=== PATIENT | female | born 1990 | race Caucasian/White ===

== ENCOUNTER → 2016-05-03 | Outpatient (CLI) | payer OTHER ==
[2016-05-03 10:31] LABS: BASO % 0.4 %; BASO ABS # 0.04 K/uL (0-0.2); COMPLETE YES; EOS % 1.8 %; HEMATOCRIT 42.6 % (37-47); IG% 0.3 %; LYMPH % 32.6 %; LYMPH ABS # 3.25 K/uL (1.2-3.4); MEAN CELL VOLUME 90.3 fL (80-100); MEAN CORPUSCULAR HEMOGLOBIN 30.7 pg (25-34); MEAN PLATELET VOLUME 9.9 fL (7.4-10.4); MONO % 7.1 %; NEUT % 57.8 %; PLATELET COUNT 431 K/uL (130-400); RED BLOOD COUNT 4.72 M/uL (4.2-5.4); WHITE BLOOD COUNT 9.98 K/uL (4.8-10.8)
[2016-05-03 10:46] LABS: ALT/SGPT 28 U/L (12-78); AST/SGOT 17 U/L (15-37); BLOOD UREA NITROGEN 8 mg/dl (7-18); BUN/CREATININE RATIO 11.8 (10-20); CALCIUM 9.2 mg/dl (8.5-10.1); CARBON DIOXIDE 30 mmol/L (21-32); CHLORIDE 103 mmol/L (98-107); CREATININE 0.67 mg/dl (0.60-1.20); GLUCOSE 90 mg/dl (70-99); POTASSIUM 4.2 mmol/L (3.5-5.1); SODIUM 139 mmol/L (136-145)
[2016-05-03 10:57] LABS: ALB/GLOB RATIO 1.1 (0.9-2); ALKALINE PHOSPHATASE 82 U/L (45-117); CHOLESTEROL 174 mg/dl (0-200); CHOLESTEROL/HDL RATIO 2.9; HDL CHOLESTEROL 60 mg/dl; LDL CHOLESTEROL CALCULATED 95 mg/dl; TRIGLYCERIDES 93 mg/dl (0-150); VERY LOW DENSITY LIPOPROT CALC 19 mg/dl
== END | disposition home or self-care (01) ==
LOC: C.LABBC 08:42
PROVIDERS: ATTEND Family Medicine
DX: Z13.0 Encounter for screening for diseases of the blood and blood-forming organs and certain disorders involving the immune mechanism (principal); R53.83 Other fatigue; G43.009 Migraine without aura, not intractable, without status migrainosus; Z13.220 Encounter for screening for lipoid disorders

== ENCOUNTER → 2017-06-18 | Outpatient (CLI) | payer OTHER ==
[~2017-06-18] MED LIST: GADAVIST IV PRN
--- NOTE | 2017-06-18 09:43 | DIAGNOSTIC IMAGING REPORT ---
MRI OF THE BRAIN COMBO CLINICAL HISTORY: Migraine headache. COMPARISON STUDY: No priors. TECHNIQUE: MRI of the brain was performed utilizing various T1 and T2-weighted sequences in the axial, sagittal, and coronal planes. Contrast-enhanced sequences were acquired following the administration of 8.5 cc of Gadavist. FINDINGS: Brain parenchyma: The brain parenchyma is normal in appearance. There is no hemorrhage or mass effect. There is no restricted diffusion to suggest acute ischemia. No enhancing mass lesion is identified on the postcontrast images. Collier-white matter differentiation is preserved. No extra-axial fluid collection is seen. The cerebellar tonsils are normal in configuration. Ventricles, sulci, and cisterns: Normal in configuration. Pituitary and sella: Unremarkable. Intracranial vasculature: Normal flow voids are maintained at the skull base. Orbits: The bony orbits are grossly intact. Orbital contents are normal in appearance. Sinuses and mastoids: Clear. Calvarium: Unremarkable. Cervical cord: Partially visualized cervical spinal cord is normal in morphology and signal intensity. IMPRESSION: No acute intracranial abnormality. Electronically signed by: Krunal Gillis M.D. 06/18/2017 9:41 AM Dictated Date/Time: 06/18/2017 9:39 AM
--- NOTE | 2017-06-18 09:44 | DIAGNOSTIC IMAGING REPORT ---
MRI CERVICAL SPINE COMBO CLINICAL HISTORY: M54.2 Neck painM54.12 Cervical radicular painR29.818 Lhermitte's TECHNIQUE: Sagittal and axial T1, T2 and STIR images were obtained. Imaging was obtained before and after the administration of 8.5 cc of intravenous Gadavist COMPARISON STUDY: No previous studies for comparison. There are no suspicious areas of marrow replacement. No intrinsic cervical cord lesions are visualized. C2-3: There is no evidence of disc bulge or focal herniation. There is no spinal or foraminal stenosis. C3-4: There is no evidence of disc bulge or focal herniation. There is no spinal or foraminal stenosis. C4-5: There are no disc bulges or focal herniations. There is no spinal or foraminal stenosis. C5-6 :There is an annular fissure and tiny central disc protrusion. There is no significant spinal or foraminal stenosis C6-7: There is no evidence of disc bulge or focal herniation. There is no evidence of spinal or foraminal stenosis. C7-T1: There is no evidence of disc bulge or focal herniation. There is no evidence of spinal or foraminal stenosis. Postcontrast images reveal no pathologically enhancing lesions. IMPRESSION:Annular fissure and tiny central disc protrusion at the C5-6 level. Electronically signed by: Jc Ash M.D. 06/18/2017 9:43 AM Dictated Date/Time: 06/18/2017 9:39 AM
== END | disposition home or self-care (01) ==
LOC: C.MRIBC 07:59
PROVIDERS: ATTEND Psychiatry & Neurology Neurology
DX: M54.12 Radiculopathy, cervical region (principal); R29.818 Other symptoms and signs involving the nervous system; G43.009 Migraine without aura, not intractable, without status migrainosus; H54.7 Unspecified visual loss; M50.222 Other cervical disc displacement at C5-C6 level

== ENCOUNTER → 2017-07-03 | Outpatient (CLI) | payer OTHER ==
[2017-07-03 16:36] LABS: BASO % 0.5 %; BASO ABS # 0.05 K/uL (0-0.2); EOS % 2.3 %; EOS ABS # 0.24 K/uL (0-0.5); HEMATOCRIT 39.9 % (37-47); HEMOGLOBIN 13.6 g/dL (12.0-16.0); IG# 0.02 K/uL (0.00-0.02); LYMPH % 38.3 %; LYMPH ABS # 4.05 K/uL (1.2-3.4); MEAN CELL VOLUME 90.5 fL (80-100); MEAN CORPUSCULAR HEMOGLOBIN 30.8 pg (25-34); MEAN CORPUSCULAR HGB CONC 34.1 g/dl (32-36); MEAN PLATELET VOLUME 10.3 fL (7.4-10.4); MONO % 5.9 %; MONO ABS # 0.62 K/uL (0.11-0.59); NEUT % 52.8 %; NEUT ABS # 5.59 K/uL (1.4-6.5); PLATELET COUNT 433 K/uL (130-400); RED CELL DISTRIBUTION WIDTH CV 12.1 % (11.5-14.5); RED CELL DISTRIBUTION WIDTH SD 40.5 fL (36.4-46.3); WHITE BLOOD COUNT 10.57 K/uL (4.8-10.8)
[2017-07-03 16:47] LABS: ALBUMIN 4.1 gm/dl (3.4-5.0); ALT/SGPT 19 U/L (12-78); BLOOD UREA NITROGEN 8 mg/dl (7-18); CALCIUM 9.1 mg/dl (8.5-10.1); CARBON DIOXIDE 28 mmol/L (21-32); CREATININE 0.64 mg/dl (0.60-1.20); GLUCOSE 69 mg/dl (70-99); POTASSIUM 3.4 mmol/L (3.5-5.1); SODIUM 133 mmol/L (136-145)
[2017-07-03 17:08] LABS: ALKALINE PHOSPHATASE 56 U/L (45-117); AST/SGOT 14 U/L (15-37); TOTAL PROTEIN 8.2 gm/dl (6.4-8.2); TRANSFERRIN 392 mg/dl (200-360)
[2017-07-04 02:17] LABS: RAPID PLASMA REAGIN NONREACTIVE (NONREACT)
[2017-07-08 02:24] LABS: ANA SCREEN TC 249X NEGATIVE (NEGATIVE); ANTI-SS-A <1.0 NEG AI (<1.0 NEG); ANTI-SS-B <1.0 NEG AI (<1.0 NEG); ANTICARDIOLIPID AB IGA <11 APL (< = 11); COMPLEMENT C3 TC 44859W 141 MG/DL (90-180); COMPLEMENT C4 TC 44982E 27 MG/DL (16-47); MICROSOMAL AB <1 IU/ML (<9)
== END | disposition home or self-care (01) ==
LOC: C.LABBFT 13:25
PROVIDERS: ATTEND Psychiatry & Neurology Neurology
DX: G43.009 Migraine without aura, not intractable, without status migrainosus (principal); H54.7 Unspecified visual loss; R53.83 Other fatigue; E55.9 Vitamin D deficiency, unspecified; M25.50 Pain in unspecified joint

== ENCOUNTER → 2017-12-21 | Outpatient (CLI) | payer OTHER | END | disposition home or self-care (01) | LOC: C.LABBFT 08:05 | PROVIDERS: ATTEND Nurse Practitioner | DX: Z13.220 Encounter for screening for lipoid disorders (principal); Z13.1 Encounter for screening for diabetes mellitus ==

== ENCOUNTER 2022-08-06 07:46 | Inpatient (IN) ==
[2022-08-06] MEDS ORDERED: LIDOCAINE 1% LOCAL 20 ML VIAL INFIL PRN (08:15)
[2022-08-06] MEDS ORDERED: OXYTOCIN 30 UNITS/500 ML BAG IV PRN ×3 (08:15→17:55)
[2022-08-06 08:46] LABS: Hematocrit (blood only) 34.5 % (37.0-47.0); Hemoglobin 12.1 g/dl (12.0-16.0); Mean Corpuscular Hemoglobin 31.3 pg (25.0-34.0); Mean Corpuscular Hgb Conc 35.1 g/dL (32.0-36.0); Mean Corpuscular Volume 89.4 fL (80.0-100.0); Mean Platelet Volume 10.7 fL (9.4-12.4); Platelet Count 295 K/uL (130-400); RDW Coefficient of Variation 12.9 % (11.5-14.5); RDW Standard Deviation 41.9 fL (36.4-46.3); Red Blood Count 3.86 M/uL (4.20-5.40); White Blood Count 11.19 K/ul (4.8-10.8)
[2022-08-06] MEDS: LACTATED RINGER'S 1,000 ML IV PRN ×2 (09:13→13:28)
[2022-08-06] MEDS ORDERED: ePHEDrine sulfate 50 MG/ML AMP ONE (12:58)
[2022-08-06] MEDS ORDERED: BUPIVACAINE 0.25% PF 30 ML VIAL ONE (12:59)
[2022-08-06] MEDS ORDERED: SODIUM CHLORIDE 0.9% PF INJ 10 ML VIAL ONE (12:59)
[2022-08-06] MEDS ORDERED: fentaNYL citrate PF 100 MCG/2 ML VIAL ONE (12:59)
[2022-08-06] MEDS ORDERED: LIDOCAINE 2%/EPINEPHRINE 1:200,000 20 ML PF ONE (12:59)
[2022-08-06] MEDS ORDERED: fentaNYL 2MCG/ML ROPIVACAINE 1.25MG/ML 100 ML BAG EPI ONE (13:00)
[2022-08-06] MEDS ORDERED: ePHEDrine sulfate 50 MG/ML AMP IV PRN (13:43)
[2022-08-06] MEDS ORDERED: ONDANSETRON INJ 2 MG/ML 2 ML VIAL IV PRN (13:43)
[2022-08-06] MEDS ORDERED: NALOXONE HCL 0.4 MG/1 ML VIAL/CARP IV PRN (13:43)
[2022-08-06] MEDS ORDERED: fentaNYL 2MCG/ML ROPIVACAINE 1.25MG/ML 100 ML BAG EPI PRN (13:43)
[2022-08-06] MEDS ORDERED: NALOXONE HCL 1 MG in SODIUM CHLORIDE 0.9% 1000ML 1,000 ML IV PRN (13:43)
[2022-08-06] MEDS ORDERED: diphenhydrAMINE 50 MG/ML VIAL IV PRN (13:43)
[2022-08-06] MEDS ORDERED: NALBUPHINE HCL INJ 10 MG/ML AMP IV PRN (13:43)
--- NOTE | 2022-08-06 13:43 | Anesthesiology Consultation ---
Date of Service August 06, 2022 Assessment & Plan Chart Review Chart Review: Patient NOT seen in Pre Admission Testing and Acceptable Risk for Labor Epidural Consults Requested none ASA ASA2 Proposed Anesthesia Anesthesia Type: Labor Epidural Risk / Benefits Reviewed With: PT / POA / Parent / Guardian, Accepts Plan and Informed Consent Obtained History Height/Weight Height: 5 ft 9 in Weight: 97.069 kg Allergies Allergy/AdvReac Type Severity Reaction Status Date / Time cefaclor [From [facility]] Allergy Verified 08/05/22 14:52 Medications Home Medications Medication Instructions Recorded Confirmed Last Taken cholecalciferol (vitamin D3) 125 5,000 unit PO QAM 11/29/18 08/06/22 08/06/22 07:00 mcg (5,000 unit) capsule Saccharomyces boulardii 250 mg 250 mg PO DAILY 09/06/21 08/06/22 08/06/22 07:00 capsule (Daily Probiotic (S. boulardii)) magnesium citrate 100 mg capsule 180 mg PO DAILY 09/06/21 08/06/22 08/06/22 07:00 ascorbic acid (vitamin C) 500 mg 500 mg PO DAILY 12/16/21 08/06/22 08/06/22 07:00 tablet pyridoxine (vitamin B6) [Vitamin 1 tab PO DAILY 12/16/21 08/05/22 08/06/22 07:00 B-6] aspirin 81 mg tablet,delayed 81 mg PO DAILY 04/11/22 08/06/22 08/05/22 22:00 release (Adult Low Dose Aspirin) breast pump #1 ea 05/09/22 08/05/22 Unknown prenat.vits,holden,zzg-[id number]-bdcda 1 tab PO DAILY 08/06/22 08/06/22 08/06/22 07:00 Active Medications Generic Name Dose Route Start Last Admin Trade Name Freq PRN Reason Stop Dose Admin Lactated Ringer's 1,000 mls @ 125 mls/hr 08/06/22 08:15 08/06/22 13:28 Lr IV 08/08/22 08:14 999 mls/hr .Q8H PRN Administration L&D Protocol Protocol Oxytocin 30 units in 500 mls @ 6 mls/hr 08/06/22 08:26 08/06/22 11:05 Pitocin IV 04/14/23 08:25 0.36 units/hr .Q24H PRN 6 mls/hr Labor Induction/Augmentation Titration Protocol 0.36 UNITS/HR Past Medical History Medical History (Updated 02/17/22 @ 09:20 by Gini Ralph MD, FACOG) Anti-BULLET LUBRICATING MACHINE OPERATOR antibodies present Anxiety Common migraine without aura Exercise-induced asthma Vitamin D deficiency Exercise / Class Metabolic Activity II 4-5 Yardwork/Stairs/Walk up hill Past Family History Family History (Updated 06/12/21 @ 09:43 by Nicole Montelongo) Mother Anxiety Spine degeneration Fibromyalgia SLE (systemic lupus erythematosus) Uncle Myocardial infarction Cardiac disorder Father Hypertension Hypothyroidism Aunt Ovarian cancer Sister Myocarditis Denies family history of Clotting disorder Past Surgical History Surgical History S/P dental yarsani DENTAL IMPLANTS S/P skin biopsy right arm 17 yrs ago Past Anesthesia History No Hx of Anesthesia Complications and No Family Hx of Anesthesia Complications History of PONV No Hx of PONV and No Hx of Motion Sickness Social History Smoking Status: Never smoker Hx Alcohol Use: No alcohol intake frequency: holidays/special occasions only Hx Substance Use: No substance use type: does not use Physical Exam Vital Signs Last Vital Signs Temp 36.5 C 08/06/22 08:11 Pulse 82 08/06/22 13:42 Resp 20 08/06/22 08:11 BP 122/72 08/06/22 13:42 Pulse Ox 98 08/06/22 13:41 ENMT Mouth: no dentition abnormality Thyromental Distance: > or= 3.5 Finger Breadths Mallampati Class: II Neck normal visual inspection Respiratory normal respiratory effort Auscultation: lungs clear to auscultation bilaterally Cardiovascular Rate/Rhythm: regular rate and regular rhythm Psychiatric Orientation: alert Testing Laboratory Results 08/06/22 08:25
--- NOTE | 2022-08-06 13:51 | History & Physical Report ---
Date of Service August 06, 2022 Assessment & Plan (1) Supervision of normal first : Plan Rose Mary is a 32-year-old G1 0 currently at 40 weeks 6 days gestational age presents for induction of labor 1. Fetus: Cat 1 2. Labor: Pitocin with AROM when able 3. GBS negative 4. Vitals:WNL Admission and Anticipated Discharge Date Admission Date: August 06, 2022 History of Present Illness Primary Care Provider: Cristal Ellis MD Rose Mary is a 32-year-old currently at this 6 days gestational age presents for induction of labor secondary to late term . complications: Possible mixed connective tissue disease *Positive anti-IRRIGATION ENGINEER antibodies *Rheumatology vist 2018 states could possibly be mixed connective tissue disease *rheumatology consult (01/31/22) - no concerns *MFM consult (03/24/22 @ [facility] – [place] ASA and Growth at 32 week Placental Luna<2cm OB Labs: Blood Type O Positive 12/23/21 Antibody Screen NEGATIVE 12/23/21 Hemoglobin 12.1 g/dl (12.0-16.0) 08/06/22 Hematocrit 34.5 % (37.0-47.0) L 08/06/22 Mean Corpuscular Volume 89.4 fL (80.0-100.0) 08/06/22 Platelet Count 295 K/uL (130-400) 08/06/22 Rubella IgG Antibody Immune (Immune) 12/23/21 Rapid Plasma Reagin Nonreactive (Nonreactive) 12/23/21 Hepatitis B Surface Antigen. NON-REACTIVE (NON-REACTIVE) 12/23/21 Hepatitis C Antibody (EIA) NON-REACTIVE (NON-REACTIVE) 12/23/21 HIV (1&2) Ag and Ab Confirmation NON-REACTIVE (NON-REACTIVE) 12/23/21 Glucose 1 Hour 50 gm Load 129 mg/dl (70-130) 05/09/22 Maternal Serum Alpha Fetoprotein 31.1 ng/mL 02/17/22 OB Optional Labs: Chlamydia trachomatis RNA NOT DETECTED (NOT DETECTED) 12/23/21 Neisseria gonorrhoeae RNA NOT DETECTED (NOT DETECTED) 12/23/21 Thyroid Stimulating Hormone (TSH) 0.906 uIu/ml (0.300-4.500) 06/30/22 Alpha Fetoprotein Triple Screen SEE NOTE Allergies Allergy/AdvReac Type Severity Reaction Status Date / Time cefaclor [From [facility]] Allergy Verified 08/05/22 14:52 Home Medications Medication Instructions Recorded Confirmed Type cholecalciferol (vitamin D3) 125 5,000 unit PO QAM 11/29/18 08/06/22 History mcg (5,000 unit) capsule Saccharomyces boulardii 250 mg 250 mg PO DAILY 09/06/21 08/06/22 History capsule (Daily Probiotic (S. boulardii)) magnesium citrate 100 mg capsule 180 mg PO DAILY 09/06/21 08/06/22 History ascorbic acid (vitamin C) 500 mg 500 mg PO DAILY 12/16/21 08/06/22 History tablet pyridoxine (vitamin B6) [Vitamin 1 tab PO DAILY 12/16/21 08/05/22 History B-6] aspirin 81 mg tablet,delayed 81 mg PO DAILY 04/11/22 08/06/22 History release (Adult Low Dose Aspirin) breast pump #1 ea 05/09/22 08/05/22 Rx prenat.vits,holden,gbt-lucv-wnacm 1 tab PO DAILY 08/06/22 08/06/22 History Patient History Medical History (Updated 02/17/22 @ 09:20 by Gini Ralph MD, FACOG) Anti-IRRIGATION ENGINEER antibodies present Anxiety Common migraine without aura Exercise-induced asthma Vitamin D deficiency Surgical History S/P dental congregation DENTAL IMPLANTS S/P skin biopsy right arm 17 yrs ago Family History (Updated 06/12/21 @ 09:43 by Nicole Montelongo) Mother Anxiety Spine degeneration Fibromyalgia SLE (systemic lupus erythematosus) Uncle Myocardial infarction Cardiac disorder Father Hypertension Hypothyroidism Aunt Ovarian cancer Sister Myocarditis Denies family history of Clotting disorder Social History (Updated 12/16/21 @ 11:01 by Lisbet Figueredo) Smoking Status: Never smoker Second Hand Exposure: No; Hx Alcohol Use: No Hx Substance Use: No Preferred Language: Yakut Communication Ability: Effective Salvage Worker Required: No Beliefs That Will Affect Care: None marital status: marital status details: Patricio (31) [phone] Current Living Situation: Spouse Current Living Situation Comment: Lives with spouse, 1 cat, spouse to change litter. current occupational status: employed current occupation: Terminal Operator Other Information That Helps Us Care for You: No Feels Safe at Home: Yes Safety Concerns: Feels Safe At This Time Childhood Exposure to Second-Hand Smoke: Yes Dental Care, Regularly: Yes Physical Activity Frequency: 3-4 Times per Week Assistive Devices: None Physical Exam Genitourinary: OB Exam Abdomen: + vertex Manual OB Exam: + cervical dilation 2 cm, + cervical effacement 80% and + station -2 OB Exam Monitor Tracing: + external FHT monitor used, + external uterine monitor used, + category I and + normal FHT variability; no early decelerations present, no late decelerations present and no variable decelerations Results & Data Vital Signs (Past 12 Hours) Vital Signs Temp Pulse Resp BP Pulse Ox 08/06/22 13:46 99 08/06/22 13:46 72 08/06/22 13:44 75 08/06/22 13:44 128/74 08/06/22 13:42 82 08/06/22 13:42 122/72 08/06/22 13:41 98 08/06/22 13:41 71 08/06/22 13:40 74 08/06/22 13:40 127/74 08/06/22 13:38 65 08/06/22 13:38 133/73 08/06/22 13:36 98 08/06/22 13:36 70 08/06/22 13:36 131/86 08/06/22 13:31 99 08/06/22 13:31 75 08/06/22 13:26 100 08/06/22 13:26 76 08/06/22 11:08 69 08/06/22 11:08 142/90 H 08/06/22 08:11 36.5 C 83 20 125/72 Coding Level of Care Code None Diagnoses Supervision of normal first Z34.00
[2022-08-06] MEDS ORDERED: DIPHTHERIA/TETANUS/PERTUSSIS 0.5mL SYR/VIAL (Age 7+yrs) IM ONE (17:55)
[2022-08-06] MEDS ORDERED: HYDROCORTISONE ACETATE 25 MG SUPP PR PRN (17:55)
[2022-08-06] MEDS ORDERED: ACETAMINOPHEN 325 MG TAB PO PRN (17:55)
[2022-08-06] MEDS ORDERED: bisacodyL 10 MG SUPP PR PRN (17:55)
[2022-08-06] MEDS ORDERED: miSOPROStoL 200 MCG TAB PR ONE (18:15)
--- NOTE | 2022-08-06 19:53 | Anesthesia Procedure Note ---
Date of Service August 06, 2022 Anesthesia Post Epidural Note Vital Signs Vital Signs: Temp Pulse Resp BP Pulse Ox 36.5 C 98 H 20 136/73 98 08/06/22 13:59 08/06/22 19:51 08/06/22 13:59 08/06/22 19:51 08/06/22 18:21 Notes Mental Status: alert / awake / arousable Nausea / Vomiting: adequately controlled Pain: adequately controlled Airway Patency, RR, SpO2: stable & adequate BP & HR: stable & adequate Hydration State: stable & adequate Neuraxial Anesthesia: was administered and sensory block is resolving Anesthetic Complications: no major complications apparent and Pt Satisfied with anesthetic care Epidural: Removed without complications and With tip intact
[2022-08-06] MEDS: IBUPROFEN 600 MG TAB PO PRN (21:09)
[2022-08-06] MEDS: DOCUSATE SODIUM 100 MG CAP PO SCH (21:09)
[2022-08-06] MEDS: BENZOCAINE 20% AER SPR 82.5 GM CAN EXT PRN (21:09)
--- NOTE | 2022-08-06 22:23 | Delivery Summary ---
DATE OF SERVICE: 08/06/2022. PROCEDURE: 1. Normal spontaneous vaginal delivery. 2. First-degree perineal and bilateral labial laceration repairs. SURGEON: Compa Howard MD. PREOPERATIVE DIAGNOSES: 1. Single intrauterine at 40 weeks 5 days gestational age. 2. Maternal history of mixed connective tissue disease. POSTOPERATIVE DIAGNOSES: 1. Single intrauterine at 40 weeks 5 days gestational age. 2. Maternal history of mixed connective tissue disease. 3. Status post procedure. ESTIMATED BLOOD LOSS: 300 mL. DRAINS: None. FLUIDS: Continuous lactated Ringer. URINE OUTPUT: Not measured. COMPLICATIONS: None. FINDINGS: Viable male with weight and Apgars pending. INDICATIONS: Rose Mary is a 32-year-old G1, P0, at 40 weeks 5 days gestational age, presents for induc tion of labor secondary to late term . The patient was initially found to be 2 cm dilated, 8 0% effaced, negative 2 station. She was started on oxytocin per regular protocol. She had spontaneo us rupture of membranes, received an epidural for anesthesia. The patient progressed to complete-com plete, +2 station, pushed for a little over an hour to achieve delivery. DESCRIPTION OF PROCEDURE: The patient progressed to 10 cm dilated, 100% effaced, positive 2 station, pushed over intact perineum with epidural anesthesia and delivered a viable male with weight and Apgars pending. Head of the delivered in ANGELITO position, restituted to left transverse. A single loose nuchal was noted, which was easily reduced. Body and shoulders quickly followed. Sawyer porfirio was noted to be vigorous upon delivery and 1 minute delayed cord clamping was initiated. Cord w as then double clamped and cut. remained on maternal abdomen. Cord blood was obtained. Att ention was then turned to delivery of the placenta, which was delivered intact, 3-vessel cord, gentle cord traction. On inspection of the perineum, vagina, cervix, there was noted to be a first-degree perineal laceration and bilateral labial laceration extending from the perineal. These were all repai red with 3-0 Vicryl with continuous running stitch. Needle, sponge, and instrument counts were corre ct at the completion of the case. Both mother and stable in the immediate post-delivery tiara od. Job ID: [id number]
[2022-08-07] MEDS: IBUPROFEN 600 MG TAB PO PRN ×2 (03:39→08:43)
[2022-08-07 06:43] LABS: Hematocrit (blood only) 33.7 % (37.0-47.0); Hemoglobin 11.5 g/dl (12.0-16.0); Mean Corpuscular Hemoglobin 30.8 pg (25.0-34.0); Mean Corpuscular Hgb Conc 34.1 g/dL (32.0-36.0); Mean Corpuscular Volume 90.3 fL (80.0-100.0); Mean Platelet Volume 10.8 fL (9.4-12.4); Platelet Count 268 K/uL (130-400); RDW Coefficient of Variation 13.1 % (11.5-14.5); RDW Standard Deviation 43.1 fL (36.4-46.3); Red Blood Count 3.73 M/uL (4.20-5.40); White Blood Count 15.54 K/ul (4.8-10.8)
--- NOTE | 2022-08-07 07:20 | Obstetrical Progress Note ---
Date of Service August 07, 2022 Assessment & Plan (1) Supervision of normal first : (2) Abnormal laboratory test: (3) Fertility testing: (4) Anti-COAL SCREENER antibodies present: Plan Rose Mary is a 32 y/o female who is PPD #1 following delivery at 40 weeks. -Meeting all milestones -O+/GBS negative/Rubella immune -Vital signs reviewed and WNL, hemoglobin stable -Follow up in 6 weeks for appointment -Continue routine care Admission and Anticipated Discharge Date Admission Date: August 06, 2022 Supervising Physician Co-Signing Physician Notes patient seen and evaluated with resident and agree with the above findings and plan. Routine OB care Subjective Rose Mary is a 32 y/o female who is PPD #1 following delivery at 40 weeks. She reports feeling well overall this morning. Notes abdominal cramping but pain is well managed on analgesics. Voiding without issue. Tolerating meals overnight and able to ambulate some. Endorses passing gas. Has some persistent lochia with some improvement this morning. Currently breast feeding. Review of Systems Constitutional: no fever, no chills and no sweats Respiratory: no cough, no dyspnea and no wheezing Cardiovascular: no chest pain, no palpitations and no calf pain Genitourinary: no dysuria Neurologic: no headache(s) Physical Exam Constitutional: WD/WN, vitals as above no acute distress Respiratory: no respiratory distress Auscultation: lungs clear to auscultation bilaterally; no rales, no rhonchi and no wheezes Cardiovascular: RRR, no murmur, no edema Extremities: no calf tenderness and no edema Negative Catracho's sign bilaterally. Gastrointestinal (Abdomen): Inspection/Auscultation: normal bowel sounds Genitourinary: Uterine fundus firm, palpable below the umbilicus. Results & Data Vital Signs (Past 12 Hours) Vital Signs Temp Pulse Pulse Resp BP BP 08/07/22 03:30 36.7 C 72 18 131/74 08/06/22 23:52 36.7 C 77 18 127/75 08/06/22 21:00 36.9 C 84 18 136/80 08/06/22 20:04 87 08/06/22 20:04 133/74 08/06/22 19:51 98 H 08/06/22 19:51 136/73 08/06/22 19:36 93 H 08/06/22 19:36 126/66 08/06/22 19:21 93 H 08/06/22 19:21 141/83 H Resident Activity Tracking Resident Involvement: Resident Care Provided Care Provided: OB Delivery
[2022-08-07] MEDS: DOCUSATE SODIUM 100 MG CAP PO SCH ×2 (08:43→20:38)
[2022-08-07] MEDS: PRENATAL VITAMIN 1 TAB PO SCH (08:43)
[2022-08-07] MEDS ORDERED: bisacodyL 5 MG TABEC PO SCH (20:00)
[2022-08-08] MEDS: IBUPROFEN 600 MG TAB PO PRN ×2 (02:02→08:56)
--- NOTE | 2022-08-08 06:02 | Obstetrical Progress Note ---
Date of Service August 08, 2022 Assessment & Plan (1) Supervision of normal first : (2) Abnormal laboratory test: (3) Fertility testing: (4) Anti-INSURANCE EXECUTIVE antibodies present: Shweta Bazzi is a 32 y/o female who is PPD #2 following delivery at 40 weeks. -Meeting all milestones -O+/GBS negative/Rubella immune -Vital signs reviewed and WNL, hemoglobin stable -Follow up in 6 weeks for appointment -Continue routine care -Plan for d/c today Admission and Anticipated Discharge Date Admission Date: August 06, 2022 Supervising Physician Co-Signing Physician Notes Resident Physician Supervision Note: I interviewed and examined the patient. Discussed with Dr. Lawrence and agree with findings and plan as documented in the note. Any exceptions or clarifications are listed here: PP2 s/p , doing well. VSS, exam benign and wnl. Stable for d/c home today Documented By: Chayito Barahona MD Ankit Bazzi is a 32 y/o female who is PPD #2 following delivery at 40 weeks. She reports feeling well overall this morning. Notes abdominal cramping but pain is well managed on analgesics. Voiding without issue. Tolerating meals overnight and able to ambulate some. Endorses passing gas. Has some persistent lochia with some improvement this morning. Currently breast feeding. Review of Systems Constitutional: no fever, no chills and no sweats Respiratory: no cough, no dyspnea and no wheezing Cardiovascular: no chest pain, no palpitations and no calf pain Genitourinary: no dysuria Neurologic: no headache(s) Physical Exam Constitutional: WD/WN, vitals as above no acute distress Respiratory: no respiratory distress Auscultation: lungs clear to auscultation bilaterally; no rales, no rhonchi and no wheezes Cardiovascular: RRR, no murmur, no edema Extremities: no calf tenderness and no edema Gastrointestinal (Abdomen): Inspection/Auscultation: normal bowel sounds Results & Data Vital Signs (Past 12 Hours) Vital Signs Temp Pulse Resp BP 08/08/22 00:05 36.9 C 83 18 130/81 08/07/22 20:36 36.9 C 91 H 18 130/80 Resident Activity Tracking Resident Involvement: Resident Care Provided Care Provided: OB Delivery
[2022-08-08] MEDS: BENZOCAINE 20% AER SPR 82.5 GM CAN EXT PRN (06:45)
[2022-08-08] MEDS: DOCUSATE SODIUM 100 MG CAP PO SCH (08:56)
[2022-08-08] MEDS: PRENATAL VITAMIN 1 TAB PO SCH (08:56)
[2022-08-08 09:02] LABS: Hematocrit (blood only) 31.4 % (37.0-47.0); Hemoglobin 10.7 g/dl (12.0-16.0)
== END 2022-08-08 15:00 | disposition home or self-care (01) | DRG 807 ==
LOC: 4S1 07:46 → 4E2 20:44